=== PATIENT | female | born 1950 | race Caucasian/White ===

== ENCOUNTER → 2017-12-28 12:13 | Outpatient (CLI) | payer MEDICARE, OTHER, SELFPAY ==
--- NOTE | 2017-12-28 12:25 | DI.RAD.S_ITS ---
PROCEDURE: XR LUMBAR SPINE 2-3V INDICATIONS: LOW BACK PAIN, JOINT PAIN TECHNIQUE: 3 views of the lumbar spine were acquired. COMPARISON: [facility], MR, L-SPINE WITHOUT CONTRAST, 01/06/2011, 9:49. FINDINGS: Bones: 5 [id number]-[id number] vertebrae are present. There is normal bony alignment. No vertebral body compression fractures. No suspicious bony lesions. Degenerative facet arthropathy L5-S1. Disc narrowing L3-4, L4-5 and L5-S1. Soft tissues: Overlying bowel gas pattern is normal. Vascular calcifications. IMPRESSION: 1. No acute bony abnormality. 2. Degenerative facet disease and discopathy. Dictated by: Ashok Ritter M.D. on 12/28/2017 at 13:23 Approved by: Ashok Ritter M.D. on 12/28/2017 at 13:25
--- NOTE | 2017-12-28 12:25 | DI.RAD.S_ITS ---
PROCEDURE: XR CERVICAL SPINE 2V OR 3V INDICATIONS: LOW BACK PAIN, JOINT PAIN TECHNIQUE: 3 view(s) of the cervical spine were acquired. COMPARISON: [facility], MR, C-SPINE WITHOUT CONTRAST, 04/30/2012, 9:32. [facility], CR, SPINE CERVICAL MIN 4VW, 08/31/2009, 12:12. FINDINGS: Bones: Straightening of cervical lordosis may be positional or related to muscle spasm. No fractures or dislocations to the C7 level. The lateral masses of C1 appear intact on the odontoid view. Disc degeneration again noted at C5-6 and C6-7. There is prominent facet arthropathy at multiple levels, notably on the right at C3-4 and C4-5 and on the left at C5-6. No suspicious bony lesions. Soft tissues: No prevertebral soft tissue swelling. IMPRESSION: Loss of lordosis. Lower cervical disc degeneration. Multilevel facet arthropathy. Dictated by: Ashok Ritter M.D. on 12/28/2017 at 13:19 Approved by: Ashok Ritter M.D. on 12/28/2017 at 13:22
== END ==
PROVIDERS: Family Provider Internal Medicine; Visit Provider Internal Medicine
DX: M51.36 Other intervertebral disc degeneration, lumbar region (principal); M47.816 Spondylosis without myelopathy or radiculopathy, lumbar region
CPT/HCPCS: 72040; 72100

== ENCOUNTER → 2019-07-03 12:18 | Outpatient (CLI) | payer MEDICARE, OTHER, SELFPAY ==
--- NOTE | 2019-07-03 | DI.MG.S_ITS ---
BILATERAL DIGITAL SCREENING MAMMOGRAM 3D/2D WITH CAD: 07/03/2019 CLINICAL: Routine screening. Comparison is made to exams dated: 08/15/2017 mammogram - [facility], 07/10/2016 mammogram, 03/12/2015 mammogram, and 01/26/2014 mammogram - [facility]. The tissue of both breasts is heterogeneously dense. This may lower the sensitivity of mammography. Current study was also evaluated with a Computer Aided Detection (CAD) system. No significant masses, calcifications, or other findings are seen in either breast. There has been no significant interval change. IMPRESSION: NEGATIVE There is no mammographic evidence of malignancy. A 1 year screening mammogram is recommended. This exam was interpreted at Station ID: [id number]. NOTE: For mammograms, a report in lay terms will be sent to the patient. Approximately 15% of breast malignancies will not be visualized mammographically. In the management of a palpable breast mass, a negative mammogram must not discourage biopsy of a clinically suspicious lesion. Electronically Signed By: Magdy bernard/madison:07/03/2019 21:04:42 letter sent: Normal Exam ACR BI-RADS Category 1: Negative 3341F
== END ==
PROVIDERS: PCP Internal Medicine; Visit Provider Internal Medicine
DX: Z12.31 Encounter for screening mammogram for malignant neoplasm of breast (principal); Z78.0 Asymptomatic menopausal state
CPT/HCPCS: 77063; 77067; 77080

== ENCOUNTER → 2020-03-09 12:36 | Outpatient (CLI) | payer MEDICARE, OTHER, SELFPAY ==
--- NOTE | 2020-03-09 | DI.RAD.S_ITS ---
PROCEDURE: XR LUMBAR SPINE 2-3V INDICATIONS: LOW BACK PAIN TECHNIQUE: 3 views of the lumbar spine were acquired. COMPARISON: MR, L-SPINE WITHOUT CONTRAST, 01/06/2011, 9:49. [facility], CR, XR LUMBAR SPINE 2-3V, 12/28/2017, 12:06. FINDINGS: Bones: 5 [id number]-esk-myhsxgx vertebrae are present. There is normal bony alignment. No vertebral body compression fractures. No suspicious bony lesions. There is mild to moderate degenerative disc disease at L1-L2, L2-L3 and L3-L4. Moderate to severe facet arthropathy at L4-L5 and L5-S1. Soft tissues: Overlying bowel gas pattern is normal. Vascular calcifications consistent with atherosclerosis. IMPRESSION: Degenerative disc and facet disease in lumbar spine as described. Dictated by: Nisreen Braxton M.D. on 03/09/2020 at 14:40 Approved by: Nisreen Braxton M.D. on 03/09/2020 at 14:41
== END ==
PROVIDERS: PCP Internal Medicine; Referring Provider Internal Medicine; Visit Provider Internal Medicine
DX: M54.5 Low back pain (principal); M51.36 Other intervertebral disc degeneration, lumbar region; M47.816 Spondylosis without myelopathy or radiculopathy, lumbar region; M47.817 Spondylosis without myelopathy or radiculopathy, lumbosacral region
CPT/HCPCS: 72100

== ENCOUNTER → 2020-12-30 15:44 | Outpatient (CLI) | payer MEDICARE, OTHER, SELFPAY ==
--- NOTE | 2020-12-30 15:47 | DI.MRI.S_ITS ---
PROCEDURE: MR LUMBAR SPINE WO CON INDICATIONS: Radiculopathy, lumbar region TECHNIQUE: Noncontrast sagittal T1 spin echo and T2 fast echo, sagittal STIR, axial T1 and T2 fast spin echo through the lumbar spine. In cases with scoliosis, additional coronal T2 fast spin echo may be performed. COMPARISON: [facility], MR, L-SPINE WITHOUT CONTRAST, 01/06/2011, 9:49. FINDINGS: Image quality: Excellent. Alignment and Curvature: There is 1-2 mm retrolisthesis of L3 on L4, 5 mm of L5 on S1, unchanged. Bone Marrow: Marrow is of normal overall signal. Minimal reactive endplate changes are present from L2-3 through L5-S1 No acute vertebral body compression fractures. Spinal Cord: Conus medullaris terminates at the L1 level. Visualized cord demonstrates normal signal and size. . 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 Paraspinous Soft Tissues: No paravertebral masses. Discs: Mild to moderate desiccation is present throughout the lumbar spine. L1-L2: No disc bulge, spinal stenosis or foraminal narrowing. No interval change. L2-L3: Mild disc bulge without spinal stenosis or foraminal narrowing. Appearance is slightly progressive compared to prior exam. Facet and ligamentum flavum hypertrophy as well as epidural lipomatosis are present. L3-L4: Mild disc bulge with moderate spinal stenosis, slightly progressive. No foraminal narrowing. Facet and ligamentum flavum hypertrophy are present. L4-L5: Mild disc bulge with moderate to severe spinal stenosis, progressive. There is mild bilateral foraminal narrowing with facet and ligamentum flavum hypertrophy, stable L5-S1: Mild disc bulge with ajva-io-sixhrsrd spinal stenosis, unchanged. There is moderate right and mild left foraminal narrowing with facet and ligamentum flavum hypertrophy. No interval change. IMPRESSION: 1. Multilevel degenerative changes with areas of progression as above. 2. Multilevel overall spinal stenosis most notable at L4-5 secondary to disc bulge with contributing affective facet/ligamentum flavum arthropathy. 3. Multilevel foraminal narrowing overall most prominent at L5-S1 secondary to facet/ligamentum flavum arthropathy. Dictated by: Laurence Jiménez M.D. on 12/31/2020 at 10:26 Approved by: Laurence Jiménez M.D. on 12/31/2020 at 11:29
== END ==
PROVIDERS: PCP Internal Medicine; Referring Provider Orthopaedic Surgery Orthopaedic Surgery of the Spine; Visit Provider Orthopaedic Surgery Orthopaedic Surgery of the Spine
DX: M47.26 Other spondylosis with radiculopathy, lumbar region (principal); M47.27 Other spondylosis with radiculopathy, lumbosacral region; M48.061 Spinal stenosis, lumbar region without neurogenic claudication; M48.07 Spinal stenosis, lumbosacral region
CPT/HCPCS: 72148

== ENCOUNTER → 2021-11-22 14:03 | Outpatient (CLI) | payer MEDICARE, OTHER, SELFPAY ==
--- NOTE | 2021-11-22 | DI.MG.S_ITS ---
BILATERAL DIGITAL SCREENING MAMMOGRAM 3D/2D WITH CAD: 11/22/2021 CLINICAL: Routine screening. Comparison is made to exams dated: 07/03/2019 mammogram - [facility], 08/15/2017 mammogram - [facility], 07/10/2016 mammogram, and 03/22/2015 mammogram - [facility]. The tissue of both breasts is heterogeneously dense. This may lower the sensitivity of mammography. Current study was also evaluated with a Computer Aided Detection (CAD) system. No significant masses, calcifications, or other findings are seen in either breast. There has been no significant interval change. IMPRESSION: NEGATIVE There is no mammographic evidence of malignancy. A 1 year screening mammogram is recommended. This exam was interpreted at Station ID: [id number]. NOTE: For mammograms, a report in lay terms will be sent to the patient. Approximately 15% of breast malignancies will not be visualized mammographically. In the management of a palpable breast mass, a negative mammogram must not discourage biopsy of a clinically suspicious lesion. Electronically Signed By: Magdy bernard/madison:11/22/2021 15:58:30 letter sent: Normal Exam ACR BI-RADS Category 1: Negative 3341F
== END ==
PROVIDERS: PCP Internal Medicine; Referring Provider Internal Medicine; Visit Provider Internal Medicine
DX: Z12.31 Encounter for screening mammogram for malignant neoplasm of breast (principal)
CPT/HCPCS: 77063; 77067

== ENCOUNTER → 2022-02-14 10:32 | Outpatient (CLI) | payer MEDICARE, OTHER, SELFPAY ==
[2022-02-14 12:10] LABS: COVID19 -Nasal RAPID Negative (Negative)
== END ==
PROVIDERS: PCP Internal Medicine; Visit Provider Surgery
DX: Z20.822 Contact with and (suspected) exposure to COVID-19 (principal); Z01.812 Encounter for preprocedural laboratory examination
CPT/HCPCS: 87635; C9803

== ENCOUNTER 2022-02-15 11:42 | Day surgery (SDC) | payer MEDICARE, OTHER, SELFPAY ==
[2022-02-15] VITALS (7 sets, daily range): BP systolic 132–173; BP diastolic 64–95; PULSE 76–92; RESP 15–19; TEMP 36.3–37.1; O2SAT 98–99; BMI 20.7
--- NOTE | 2022-02-15 | PATH_ITS ---
[facility] Accession Number: [id number] . 01 Material submitted: . colon - ASCENDING COLON POLYP . 01 Diagnosis: Ascending Colon, Polyp, Biopsy: Tubular adenoma. MRV 02/17/2022 1220 Local . 01 Electronically signed: . Serena Hilario MD, Pathologist NPI- [id number] . 01 Gross description: . ASCENDING COLON POLYP: Received in formalin are 2 fragment(s) of campoverde, soft tissue measuring 0.3 x 0.1 x 0.1 cm to 0.2 x 0.2 x 0.2 cm submitted entirely in 1 cassette(s) /CPE 02/16/2022 0526 Local . 01 Pathologist provided ICD-10: D12.2 . 01 CPT . 481688 Specimen Comment: A courtesy copy of this report has been sent to [facility] Pathology Performed at: 01 [facility] [address] [place] [address], [place], [place] [id number] MD Mendez Luong MD Phone: [phone]
[2022-02-15] MEDS: SODIUM CHLORIDE 0.9% 1,000 ML 70 ML IV (12:31)
--- NOTE | 2022-02-15 13:25 | P.HP_ITS ---
History of Present Illness History of Present Illness Date Patient Seen: 02/15/22 Time Patient Seen: 13:25 Chief complaint: [facility] Narrative: Patient is a very pleasant 71-year-old female who presented for colonoscopy. Her last colonoscopy was performed about 10 years ago at [facility]. She does believe she had 2 colon polyps removed at that time, but states she was told she should repeat her colonoscopy in 10 years. Her family history is unknown as she is adopted. Patient History Medical History (Updated 08/02/21 @ 09:55 by Hannah Barreto MD) Chicken pox Colon polyps (~1989) Diverticular disease (~1989) Fibroids (~1979) Hypertension (~1979) Surgical History (Updated 10/31/20 @ 22:42 by Tamiko Posadas) Anesthesia History of nasal surgery History of partial hysterectomy (~1979) Family & Social History Social History: household members spouse Tobacco & Substance use: Smoking Status Never smoker alcohol intake never alcohol intake frequency 0-2 drinks per day Substance Use Type does not use Meds Home Medications and Allergies Home Medications Medication Instructions Recorded Confirmed Type atorvastatin 40 mg tablet 40 mg PO DAILY 10/08/18 02/15/22 History carvedilol 12.5 mg tablet 12.5 mg PO BID 10/08/18 02/15/22 History fosinopril 20 mg tablet 20 mg PO DAILY 10/08/18 02/15/22 History hydrochlorothiazide 25 mg tablet 25 mg PO DAILY 10/08/18 02/15/22 History raloxifene 60 mg tablet (Evista) 60 mg PO DAILY 10/08/18 02/15/22 History CMP Estriol 0.1% Vaginal Cream 1 g vaginal 3XW #90 days 08/02/21 Rx Allergies Allergy/AdvReac Type Severity Reaction Status Date / Time Penicillins Allergy Intermediate Hives Verified 02/15/22 12:15 hydromorphone [From Dilaudid] Allergy I Turned Verified 02/15/22 12:15 thalia Review of Systems Review of Systems ROS: Yes All systems reviewed with the patient and are negative except as otherwise documented Exam Vital Signs (past 8 hours): - 02/15/22 12:33 Temperature 98.8 F Pulse Rate 90 Respiratory Rate 16 Blood Pressure 171/95 H Pulse Oximetry 98 Oxygen Delivery Method Room Air Oxygen Delivery Method Room Air Const General: cooperative, healthy appearing, comfortable, well developed, well groomed and No acute distress Nutritional Appearance: thin HENMT Head: normocephalic and atraumatic Resp Effort & Inspection: normal respiratory effort, able to speak in complete sentences and no audible wheezes Auscultation: clear to auscultation bilaterally Cardio Rate: regular rate Rhythm: regular rhythm GI Palpation: soft Auscultation: normal bowel sounds Assessment & Plan Assessment & Plan narrative: 1. Personal history colon polyps, last colonoscopy 10 years ago 2. Colon cancer screening Colonoscopy today, further recommendations to follow Time Spent With Patient Critical Care time: I spent a total of [] minutes of critical care time on this patient's care today; this time is exclusive of procedural time.
--- NOTE | 2022-02-15 13:59 | PM.OP.COLON ---
Operative Date/Time/Diagnoses Date of procedure: 02/15/22 Time of procedure: 13:36 Procedure Notes Procedure in detail: Surgeon: Annetta Lynch DO Procedure: Colonoscopy with polypectomy Preoperative diagnosis: 1. Personal history colon polyps 2. Last colonoscopy approximately 10 years Postoperative diagnosis: 1. 3 mm ascending colon removed with Jumbo forceps 2. Pandiverticulosis 3. Grade 1-2 internal hemorrhoids noted on retroflexion 4. Otherwise unremarkable colonoscopy Medications: Monitored anesthesia care Preanesthesia Assessment An H and P was performed/updated and the Px?s ASA class is 2. The procedure was discussed in detail with the patient. The potential risks and complications including infection, bleeding, missed lesions, perforation, need for surgery in case of perforation, prolonged hospital stay, and were explained. A brief question and answer period was allotted and once all questions were answered, informed consent was obtained. The patient was brought back to the procedure room and placed on standard monitoring. The patient?s vital signs were monitored continuously throughout the entire procedure. Prior to starting, a timeout was performed to confirm the patient?s identity, allergies, medications, and procedure. Procedure in detail The patient was placed in left lateral decubitus position and once adequate sedation was obtained a DB was performed. The digital rectal examination did not reveal any palpable lesions. The tip of the colonoscope was placed in the anal canal and advanced without difficulty all the way to the cecum which was identified by the appendiceal orifice and the ileocecal valve. Careful examination of all alexander of the colon was performed with irrigation of any residual stool. 3 mm flat polyp was found in the ascending colon removed with Jumbo forceps. Diverticulosis were noted scattered throughout the entire colon. Grade 1-2 internal hemorrhoids were noted on retroflexion. The patient tolerated the procedure well and will be brought back to the recovery area to be discharged once criteria are met. The prep was judged to be good/excellent and adequate to identify polyps less than 5 mm. The withdrawal time was 7min. Complications There were no complications and estimated blood loss was minimal. Recommendations: Resume previous diet Continue outPx medications Follow up pathology results Repeat colonoscopy will be determined after pathology results are reviewed An emergency contact number was given to the patient for any complications related to the procedure
--- NOTE | 2022-02-15 14:16 | SUR.PHASEI ---
awake, talkative since arrival, tolerating PO well
--- NOTE | 2022-02-15 14:45 | SUR.PHASEII ---
1440: Pt A&Ox4, denies any distress, tolerating PO and ready to discharge home. Discharge reviewed with pt by previous RN and reports has no further questions. IV DC'd intact. Pt dressed independently. Pt left unit via W/C to ER exit to meet spouse who will transport pt home.
== END 2022-02-15 14:40 | disposition home or self-care (01) ==
PROVIDERS: PCP Internal Medicine; Referring Provider Student in an Organized Health Care Education/Training Program; Visit Provider Student in an Organized Health Care Education/Training Program
PROC: 0DJD8ZZ Inspection of Lower Intestinal Tract, Via Natural or Artificial Opening Endoscopic (ICD-10-PCS; CPT 45378; principal; 2022-02-15 13:00)
DX: Z12.11 Encounter for screening for malignant neoplasm of colon (principal); Z86.010 Personal history of colon polyps; I10 Essential (primary) hypertension; K57.30 Diverticulosis of large intestine without perforation or abscess without bleeding; K64.1 Second degree hemorrhoids; D12.2 Benign neoplasm of ascending colon
CPT/HCPCS: 45380; J2704

== ENCOUNTER → 2022-06-20 11:48 | Outpatient (CLI) | payer MEDICARE, OTHER, SELFPAY | PROVIDERS: PCP Internal Medicine; Referring Provider Internal Medicine; Visit Provider Internal Medicine | DX: M81.0 Age-related osteoporosis without current pathological fracture (principal); Z78.0 Asymptomatic menopausal state; Z79.890 Hormone replacement therapy | CPT/HCPCS: 77080 ==

== ENCOUNTER → 2022-11-28 10:22 | Outpatient (CLI) | payer OTHER, SELFPAY ==
--- NOTE | 2022-11-28 10:38 | DI.US.S_ITS ---
PROCEDURE: US PERIPH VENOUS LOW EXTREM BI INDICATIONS: AUTONOMIC NEUROPATHY; BILATERAL EDEMA TECHNIQUE: Real-time imaging, as well as color and pulse Doppler interrogation, were performed of the deep veins of both legs from the inguinal ligament to the popliteal fossa. COMPARISON: None. FINDINGS: Right: The common femoral, femoral and popliteal veins are normally compressible, and free of intraluminal thrombus. Color and pulse Doppler demonstrate normal phasic intravascular flow. There is normal augmentation response to distal compression maneuver. Left: The common femoral, femoral and popliteal veins are normally compressible, and free of intraluminal thrombus. Color and pulse Doppler demonstrate normal phasic intravascular flow. There is normal augmentation response to distal compression maneuver. IMPRESSION: Negative for deep venous thrombosis. Dictated by: Petar Burden M.D. on 11/28/2022 at 11:53 Approved by: Petar Burden M.D. on 11/28/2022 at 11:54
== END ==
PROVIDERS: PCP Internal Medicine; Referring Provider Internal Medicine; Visit Provider Internal Medicine
DX: G90.9 Disorder of the autonomic nervous system, unspecified (principal); R60.0 Localized edema
CPT/HCPCS: 93970

== ENCOUNTER → 2023-08-26 14:03 | Outpatient (CLI) | payer OTHER, SELFPAY ==
--- NOTE | 2023-08-26 14:06 | DI.MRI.S_ITS ---
PROCEDURE: MR LUMBAR SPINE WO CON INDICATIONS: Spinal stenosis, lumbar region TECHNIQUE: Noncontrast sagittal T1 spin echo and T2 fast echo, sagittal STIR, and T2 fast spin echo through the lumbar spine. In cases with scoliosis, additional coronal T2 fast spin echo may be performed. COMPARISON: [facility], MR, MR LUMBAR SPINE WO CON, 12/30/2020, 16:44. FINDINGS: Image quality: Excellent. Alignment and Curvature: Straightening of normal lumbar lordosis. Mild dextrocurvature of the lumbar spine. Bone Marrow: Mild Modic type 1 degenerative endplate changes, most pronounced at L3-L4 and L5-S1. Marrow is of normal overall signal. No acute vertebral body compression fractures. Spinal Cord: Conus medullaris terminates at the L1 level. Visualized cord demonstrates normal signal and size. Paraspinous Soft Tissues: No paravertebral masses. There is a 9 mm T2 hypointense lesion within the left kidney T12-L1: Mild disc desiccation. No central canal or neural foraminal stenosis. L1-L2: Disc desiccation and mild disc bulge. Facet arthropathy. No central canal or neural foraminal stenosis. L2-L3: Disc desiccation height loss. Mild disc bulge. Facet arthropathy. Epidural lipomatosis. Mild to moderate central canal stenosis progressed. No neural foraminal stenosis. L3-L4: Disc desiccation height loss. Posterior disc bulge is mildly progressed. Moderate central canal stenosis. Facet arthropathy and thickening of ligamentum flavum. Epidural lipomatosis. No neural foraminal stenosis. L4-L5: Disc desiccation and posterior disc bulge. Facet arthropathy and thickening of the ligamentum flavum. Epidural lipomatosis. Moderate to severe central canal stenosis is mildly progressed compared to prior. Mild bilateral neural foraminal stenosis. L5-S1: Disc desiccation height loss. Mild disc bulge. Facet arthropathy and thickening of the ligamentum flavum. Stable mild to moderate central canal stenosis. Moderate right and mild left neural foraminal stenosis. IMPRESSION: 1. Multilevel degenerative changes of the lumbar spine is mildly progressed at several levels. 2. Moderate to severe central canal stenosis at L4-5 is mildly progressed. Progression of disc bulges and central canal stenosis at L2-L3 and L3-L4 as well. 3. Neural foraminal stenosis is similar to prior and most pronounced at L5-S1 with moderate right and mild left neural foraminal stenosis. 4. T2 hypointense lesion in the left kidney measuring 9 mm is indeterminate. Recommend renal ultrasound for further evaluation. Dictated by: Terry Villagomez M.D. on 08/27/2023 at 11:00 Approved by: Terry Villagomez M.D. on 08/27/2023 at 11:08
== END ==
PROVIDERS: PCP Internal Medicine; Referring Provider Orthopaedic Surgery Orthopaedic Surgery of the Spine; Visit Provider Orthopaedic Surgery Orthopaedic Surgery of the Spine
DX: M48.062 Spinal stenosis, lumbar region with neurogenic claudication (principal); M51.36 Other intervertebral disc degeneration, lumbar region; M48.07 Spinal stenosis, lumbosacral region; M47.816 Spondylosis without myelopathy or radiculopathy, lumbar region; M47.817 Spondylosis without myelopathy or radiculopathy, lumbosacral region; M41.86 Other forms of scoliosis, lumbar region; N28.9 Disorder of kidney and ureter, unspecified
CPT/HCPCS: 72148

== ENCOUNTER → 2024-02-22 11:20 | Outpatient (CLI) | payer MEDICARE, SELFPAY ==
--- NOTE | 2024-02-22 11:21 | DI.US.S_ITS ---
PROCEDURE: US RENAL COMPLETE INDICATIONS: Abnormal finding of blood chemistry TECHNIQUE: Real-time scanning was performed of the kidneys and bladder, with image documentation. COMPARISON: None. FINDINGS: Kidneys: Kidneys are normal in size. Right kidney measures 8.8 cm long; left kidney measures 8.9 cm long. Right renal cortical thickness is 1.4 cm; left renal cortical thickness is 1.4 cm. Renal cortical echotexture is mildly echogenic. No hydronephrosis or nephrolithiasis. No suspicious solid mass lesions. Bladder: Bladder is decompressed, limiting evaluation. Miscellaneous: No free pelvic fluid. IMPRESSION: 1. No hydronephrosis or nephrolithiasis bilaterally. 2. Bilateral renal cortical echotexture is mildly echogenic which is nonspecific and may be seen in the setting of medical renal disease. 3. Bladder is decompressed, limiting evaluation. Dictated by: Olivier Rodríguez M.D. on 02/26/2024 at 13:48 Approved by: Olivier Rodríguez M.D. on 02/26/2024 at 14:01
== END ==
LOC: US 11:20
PROVIDERS: PCP Internal Medicine; Referring Provider Internal Medicine; Visit Provider Internal Medicine
DX: N95.9 Unspecified menopausal and perimenopausal disorder (principal); R79.9 Abnormal finding of blood chemistry, unspecified
CPT/HCPCS: 76770

== ENCOUNTER → 2024-03-11 10:52 | Outpatient (CLI) | payer MEDICARE, SELFPAY ==
--- NOTE | 2024-03-11 10:53 | DI.MG.S_ITS ---
BILATERAL DIGITAL SCREENING MAMMOGRAM 3D/2D WITH CAD: 03/11/2024 CLINICAL: Routine screening. Comparison is made to exams dated: 11/22/2021 mammogram, 07/03/2019 mammogram - [facility], and 08/15/2017 mammogram - [facility]. Both breasts are heterogeneously dense, which may obscure small masses (category c / 51-75% glandular tissue). Current study was also evaluated with a Computer Aided Detection (CAD) system. There are benign calcifications in both breasts. No significant masses, calcifications, or other findings are seen in either breast. There has been no significant interval change. IMPRESSION: BENIGN There is no mammographic evidence of malignancy. A 1 year screening mammogram is recommended. Based on the Tyrer Cuzick model (a risk assessment model) the patient's lifetime risk is 5.0% and her 10 year risk is 4.5%. According to the ACR, ACS, and NCCN guidelines, an annual breast MRI exam along with mammogram is recommended if the patient's lifetime risk is 20% or greater. This exam was interpreted at Station ID: [id number]. NOTE: For mammograms, a report in lay terms will be sent to the patient. Approximately 15% of breast malignancies will not be visualized mammographically. In the management of a palpable breast mass, a negative mammogram must not discourage biopsy of a clinically suspicious lesion. Electronically Signed By: Kati keller/madison:03/11/2024 17:44:17 letter sent: Normal Exam ACR BI-RADS Category 2: Benign Finding(s) 3342F
--- NOTE | 2024-03-11 10:53 | DI.RAD.S_ITS ---
PROCEDURE: XR DEXA AXIAL SKELETON INDICATIONS: OSTEOPOROSIS SCREENING COMPARISON: None. FINDINGS: Lumbar Spine: Bone mineral density 1.171 g/cm2, T score 1.2, Left Hip: Bone mineral density 0.928 g/cm2, T score -0.1, Left Femoral Neck: Bone mineral density 0.733 g/cm2, T score -1.0, Grade Hip: Bone mineral density 0.938 g/cm2, T score 0.0 Right Femoral Neck: Bone mineral density 0.755 g/cm2, T score -0.8 Fracture Risk Calculation (when applicable): 10-year fracture risk of a major osteoporotic fracture 8.3% and of a hip fracture 1.2% (T score greater or equal to -1.0 to: NORMAL) (T score from -1.1 to -2.4: OSTEOPENIA) (T score less than or equal to -2.5: OSTEOPOROSIS) IMPRESSION: T-score is within normal limits. Follow-up guidelines as follows: Osteoporosis: Consider a repeat DEXA and Vertebral Fracture Assessment (VFA) exam in 2 years or sooner if medically necessary, to reassess this patient's status. Osteopenia: Consider a repeat DEXA in 2-3 years to reassess this patient's status, or if there is a new clinical indication. Normal: Consider a repeat DEXA in 5 years or sooner, or if there is a new clinical indication. All treatment decisions require clinical judgment and consideration of individual patient factors, including patient preferences, comorbidities, previous drug use, risk factors not captured in the FRAX model (e.g., frailty, falls, vitamin D deficiency, increased bone turnover, interval significant decline in bone density ) and possible under- or over-estimation of fracture risk by FRAX. In addition, the NOF Guide recommends that FDA-approved medical therapies be considered in postmenopausal women and men age >= 50 years with a: * Hip or vertebral (clinical or morphometric) fracture * T-score of <=-2.5 at the spine or hip * Ten-year fracture probability by FRAX of >= 3% for hip fracture or >=20% for major osteoporotic fracture. People with diagnosed cases of osteoporosis or at high risk for fracture should have regular bone mineral density tests. For patients eligible for Medicare, routine testing is allowed once every 2 years. The testing frequency can be increased to one year for patients who have rapidly progressing disease, those who are receiving or discontinuing medical therapy to restore bone mass, or have additional risk factors. Dictated by: Brooks Barrera M.D. on 03/11/2024 at 16:44 Approved by: Brooks Barrera M.D. on 03/11/2024 at 16:57
== END ==
LOC: RAD 10:52
PROVIDERS: PCP Internal Medicine; Referring Provider Family Medicine; Visit Provider Family Medicine
DX: N95.9 Unspecified menopausal and perimenopausal disorder (principal); Z12.31 Encounter for screening mammogram for malignant neoplasm of breast; R92.333 Mammographic heterogeneous density, bilateral breasts; R79.9 Abnormal finding of blood chemistry, unspecified
CPT/HCPCS: 77063; 77067; 77080

== ENCOUNTER → 2025-04-30 14:03 | Outpatient (CLI) | payer MEDICARE, SELFPAY ==
--- NOTE | 2025-04-30 14:06 | DI.MG.S_ITS ---
MM screening mammo BI: 04/30/2025. BI-RADS: 1 CLINICAL: 74-year old female for bilateral screening mammogram. Tyrer-Cuzick lifetime risk of 2.6%. No personal or first-degree family history of breast cancer. PRIOR EXAMS 03/11/2024, 11/22/2021, 07/03/2019, 07/21/2016, MAMMOGRAPHY TECHNIQUE: 2D and 3D (tomosynthesis) digital mammographic views obtained, with additional images as needed for full coverage. Current study was also evaluated with a Computer Aided Detection (CAD) system. DENSITY C. The breasts are heterogeneously dense, which may obscure small masses. MAMMOGRAPHY FINDINGS Bilateral: No suspicious mass, asymmetry, microcalcification, or other abnormality seen. IMPRESSION: * No evidence of malignancy. RECOMMENDATIONS Bilateral * Annual screening mammography. OVERALL ASSESSMENT CATEGORY BI-RADS-1: Negative. The [employer] recommends annual screening mammography beginning at age 40 for women with average risk of breast cancer. ELECTRONICALLY SIGNED: Ngoc Staley M.D. on 05/02/2025 at 03:39:32 PM PT Interpreting Station ID: [id number]
== END ==
LOC: MAMMO 14:04
PROVIDERS: PCP Internal Medicine; Referring Provider Internal Medicine; Visit Provider Internal Medicine
DX: Z12.31 Encounter for screening mammogram for malignant neoplasm of breast (principal); R92.333 Mammographic heterogeneous density, bilateral breasts
CPT/HCPCS: 77063; 77067

== ENCOUNTER → 2025-06-01 14:14 | Outpatient (CLI) | payer MEDICARE, SELFPAY ==
--- NOTE | 2025-06-01 14:18 | DI.RAD.S_ITS ---
PROCEDURE: XR CHEST 2V INDICATIONS: Cardiac Murmurs TECHNIQUE: 2 views of the chest were acquired. COMPARISON: None. FINDINGS: Surgical changes and devices: None. Lungs and pleura: Lungs are clear. No pleural effusions or pneumothorax. Mediastinum: Mediastinal contours are normal. Heart size is normal. Bones and chest wall: No suspicious bony abnormalities. Soft tissues appear unremarkable. IMPRESSION: No acute cardiopulmonary abnormality is seen. Dictated by: Deni Colvin M.D. on 06/01/2025 at 16:31 Approved by: Deni Colvin M.D. on 06/01/2025 at 16:32
--- NOTE | 2025-06-01 14:48 | EKG_ITS ---
[place] [id number] [place] [id number] Test Date: 2025-06-01 Pat Name: Jennifer Steele Department: [facility] Room: Gender: Female [employer] Programmer: SHAMIR : 1950 Requested By: Order Number: [id number] Reading MD: Kenan Mendoza MD Measurements Intervals [place] Rate: 62 P: 44 MT: 172 QRS: 5 QRSD: 66 T: 13 QT: 396 QTc: 401 Interpretive Statements Normal sinus rhythm Nonspecific ST abnormality Electronically Signed On 06-01-2025 16:18:32 PDT by Kenan Mendoza MD
== END ==
PROVIDERS: PCP Internal Medicine; Referring Provider Internal Medicine; Visit Provider Internal Medicine
DX: R01.0 Benign and innocent cardiac murmurs (principal)
CPT/HCPCS: 71046; 93005